=== PATIENT | female | born 1955 | race Two or more races ===

== ENCOUNTER 2018-05-01 06:09 | Emergency (ER) | payer OTHER ==
[2018-05-01 06:33] VITALS: BMI 21.7
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
[2018-05-01] MEDS ORDERED: traMADol HCL 50 MG TABLET PO ONE (07:29)
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
[2018-05-01 07:51] LABS: INR 0.87 (0.83-1.09); PROTHROMBIN TIME (PATIENT) 10.3 SEC (9.7-13.0)
[2018-05-01 07:53] LABS: ACTIVATED PTT 30.3 SECONDS (25.2-36.5)
[2018-05-01 08:00] LABS: ALK PHOS 73 U/L (45-117); ANION GAP 6 MMOL/L (8-16); BILIRUBIN,TOTAL 0.4 mg/dL (0.2-1); BLOOD UREA NITROGEN 10 mg/dL (7-18); CALCIUM 9.8 mg/dL (8.5-10.1); CHLORIDE 107 mmol/L (98-107); CO2 29 mmol/L (21-32); CREATININE 0.8 mg/dL (0.55-1.3); GLUCOSE,RANDOM 88 mg/dL (74-106); POTASSIUM 4.3 mmol/L (3.5-5.1); SGOT/AST 14 U/L (15-37); SGPT/ALT 21 U/L (13-61); SODIUM 141 mmol/L (136-145); TOT PROT 7.5 g/dl (6.4-8.2)
[2018-05-01] MEDS ORDERED: traMADol HCL 50 MG TABLET ONE ×2 (08:00→08:03)
[2018-05-01 08:17] LABS: BASO % 0.6 % (0-2.0); EOS % 1.1 % (0-4.5); HEMATOCRIT 37.2 % (32.4-45.2); LYMPH % 24.8 % (8-40); MCH 31.3 pg (25.7-33.7); MCHC 34.9 g/dl (32.0-36.0); MEAN CELL VOLUME 89.6 fl (80-96); MEAN PLT VOLUME 7.9 fl (7.5-11.1); MONO % 6.4 % (3.8-10.2); NEUT % 67.1 % (42.8-82.8); PLATELET COUNT 313 K/MM3 (134-434); RBC 4.15 M/mm3 (3.60-5.2); RDW 13.9 % (11.6-15.6); WHITE BLOOD COUNT 6.7 K/mm3 (4.0-10.0)
[2018-05-01 09:26] VITALS: BP 137/64; PULSE 82; TEMP 98
--- NOTE | 2018-05-01 12:15 | EKG ---
Test Reason : Blood Pressure : / mmHG Vent. Rate : 066 BPM Atrial Rate : 066 BPM P-R Int : 120 ms QRS Dur : 084 ms QT Int : 396 ms P-R-T Axes : 078 054 044 degrees QTc Int : 415 ms NORMAL SINUS RHYTHM WITH SINUS ARRHYTHMIA NORMAL ECG Confirmed by MD RADHA, ALEXIS ([id number]) on 05/01/2018 12:15:17 PM Referred By: Confirmed By:ALEXIS GARCIA MD
== END 2018-05-01 09:26 | disposition home or self-care (01) ==
LOC: JER 06:09
DX: S16.1XXA Strain of muscle, fascia and tendon at neck level, initial encounter (principal); V49.59XA Passenger injured in collision with other motor vehicles in traffic accident, initial encounter; W22.12XA Striking against or struck by front passenger side automobile airbag, initial encounter; Y92.414 Local residential or business street as the place of occurrence of the external cause; Y93.89 Activity, other specified; Y99.8 Other external cause status
CPT/HCPCS: 36415; 70450-TC; 71045-TC-FY; 72125-TC; 80053; 85025; 85610; 85730; 86850; 86900; 86901; 93005; 93010; 99283-25

== ENCOUNTER → 2019-04-23 | Day surgery (SDC) | payer OTHER | END | disposition home or self-care (01) | LOC: JRADIR 12:14 | PROVIDERS: ATTEND Specialist | PROC: BW1JYZZ Fluoroscopy of Upper Extremity using Other Contrast (ICD-10-PCS; principal; 2019-04-23) | PROC: BP38YZZ Magnetic Resonance Imaging (MRI) of Right Shoulder using Other Contrast (ICD-10-PCS; 2019-04-23) | PROC: BP08YZZ Plain Radiography of Right Shoulder using Other Contrast (ICD-10-PCS; 2019-04-23) | DX: S43.431A Superior glenoid labrum lesion of right shoulder, initial encounter (principal); X58.XXXA Exposure to other specified factors, initial encounter; Y93.9 Activity, unspecified; Y92.9 Unspecified place or not applicable; Y99.9 Unspecified external cause status | CPT/HCPCS: 23350; 73040-TC-FY; 73222-TC; 76000-TC-FY ==